=== PATIENT | female | born 1985 | race Asian ===

== ENCOUNTER 2019-08-02 15:33 | Emergency (ER) | payer BC ==
[~2019-08-02] VITALS: Ht 165.1 cm; Wt 52.2 kg
[2019-08-02 15:45] VITALS: Ht 165.1 cm; Wt 52.2 kg
[2019-08-02 18:52] VITALS: BP 101/70
== END 2019-08-02 18:52 | disposition home or self-care (01) ==
LOC: ED 15:33
DX: S61.412A Laceration without foreign body of left hand, initial encounter (principal); Z88.1 Allergy status to other antibiotic agents; Z88.0 Allergy status to penicillin; Z88.6 Allergy status to analgesic agent; W26.8XXA Contact with other sharp object(s), not elsewhere classified, initial encounter; Y93.89 Activity, other specified; Y92.89 Other specified places as the place of occurrence of the external cause; Y99.8 Other external cause status
CPT/HCPCS: 90715